=== PATIENT | female | born 1945 | race Hispanic/Latino ===

== ENCOUNTER 2017-10-09 12:29 | Outpatient (CLI) | payer MEDICARE ==
--- NOTE | 2017-10-09 16:58 | XRay Report ---
XRAY LEFT HIP THREE VIEWS: 10/09/17 12:29:00 CLINICAL: Left hip pain. FINDINGS: Severe osteoarthritis of the left hip with deformity of the femoral head and loss of the superior and central joint space. Geodes in the femoral head and large osteophytes. Acetabular eburnation. No fracture or dislocation. Status post right total hip replacement with normal appearance of the prosthesis. The pelvic bones are intact. Lower lumbar degenerative disc disease. Normal soft tissues. IMPRESSION: Severe osteoarthritis of the left hip. Status post right total hip replacement.
== END 2017-10-09 12:30 | disposition home or self-care (01) ==
LOC: SPVIMAG 12:29
PROVIDERS: ATTEND Orthopaedic Surgery Sports Medicine
DX: M16.12 Unilateral primary osteoarthritis, left hip (principal); Z96.641 Presence of right artificial hip joint; M51.36 Other intervertebral disc degeneration, lumbar region

== ENCOUNTER 2017-12-13 07:42 | Outpatient (CLI) | payer MEDICARE ==
--- NOTE | 2017-12-13 08:07 | XRay Report ---
LEFT HIP RADIOGRAPHS INDICATION: Status post total hip replacement. COMPARISON: 10/09/2017. FINDINGS: AP pelvic and left hip radiographs as also a left hip frog-leg projection demonstrate interval left hip arthroplasty without evidence of loosening. Stable right hip arthroplasty. Osteoporosis. Lower lumbar degenerative changes. Atherosclerotic aortoiliac calcifications. Nonobstructive bowel gas pattern. CONCLUSION: Interval left hip replacement in this patient with stable right hip arthroplasty and few other findings, as above. Thank you for the opportunity to participate in this patient's care.
== END 2017-12-13 07:43 | disposition home or self-care (01) ==
LOC: SPVIMAG 07:42
PROVIDERS: ATTEND Orthopaedic Surgery Sports Medicine
DX: Z47.1 Aftercare following joint replacement surgery (principal); M81.0 Age-related osteoporosis without current pathological fracture; M47.896 Other spondylosis, lumbar region; I70.0 Atherosclerosis of aorta; Z96.642 Presence of left artificial hip joint

== ENCOUNTER 2022-04-04 08:53 | Outpatient (CLI) | payer MEDICARE ==
[2022-04-04 10:15] LABS: Blood Urea Nitrogen 23 mg/dL (7-17)
--- NOTE | 2022-04-04 14:11 | Cat Scan Report ---
CTA ABDOMEN, PELVIS, AND LOWER EXTREMITIES WITH CONTRAST INDICATION / CLINICAL INFORMATION: I71.4. TECHNIQUE: Axial CT images were obtained through the abdomen, pelvis and lower extremities after inje ction of 100 cc of Omnipaque 350 IV contrast. 3 plane MIP / 3D reconstructions were produced. All CT scans at this location are performed using CT dose reduction for ALARA by means of automated exposure control. COMPARISON: None available. FINDINGS: CTA ABDOMEN: Abdominal Aorta: There is a 5.8 cm infrarenal abdominal aortic aneurysm. The aneurysm extends into th e common iliac arteries bilaterally. There is moderate atherosclerotic disease noted in the imaged po rtion of the thoracic aorta and in the abdominal aorta. Celiac Artery: There is mild disease at the origin without hemodynamically significant stenosis. Superior Mesenteric Artery: There is a moderate stenosis at the origin. Right Renal Artery: No significant abnormality. Left Renal Artery: No significant abnormality. Inferior Mesenteric Artery: Appears to fill from collaterals. The origin occluded. CTA PELVIS: RIGHT: - Common Iliac Artery: There is aneurysmal dilatation. The common iliac artery on the right measures 2.7 cm. There is moderate plaque. - Internal Iliac Artery: There is moderate to severe plaque without significant stenosis identified i n the proximal aspect. - External Iliac Artery: There is moderate plaque without discrete significant stenosis identified. LEFT: - Common Iliac Artery: There is aneurysmal dilatation. The vessel measures approximately 2.6 cm - Internal Iliac Artery: There is severe plaque. - External Iliac Artery: There is severe plaque. CTA LOWER EXTREMITIES: RIGHT LOWER EXTREMITY: - Common Femoral Artery: There is moderate plaque without significant stenosis. - Superficial Femoral Artery: There is multifocal plaque with focal stenosis of approximately 50% in the mid SFA, series 2 image 435. - Profunda Femoral Artery: No significant abnormality. - Popliteal Artery: There is moderate plaque without hemodynamically significant stenosis. - Anterior Tibial Artery: No significant abnormality. - Tibioperoneal Trunk: There is a stenosis appears to be greater than 50% diameter reduction - Posterior Tibial Artery: No significant abnormality - Peroneal Artery: No significant abnormality. - Ankle runoff: Three vessel. LEFT LOWER EXTREMITY: - Common Femoral Artery: There is moderate to severe plaque with approximately 50% diameter reduction stenosis. - Superficial Femoral Artery: There is multifocal disease with an approximate 60-70% diameter reducti on in the proximal third of the SFA, series 2 image 410. There is an approximate 50-60% diameter redu ction in the distal SFA. - Profunda Femoral Artery: No significant abnormality. - Popliteal Artery: There is moderate plaque. There is an approximate 50-60% diameter reduction steno sis in the mid - Anterior Tibial Artery: There is calcific plaque proximally. The vessel is patent to the ankle. - Tibioperoneal Trunk: There is a severe stenosis - Posterior Tibial Artery: Occluded - Peroneal Artery: Is patent to the ankle. - Ankle runoff: 2 vessel. NONTARGET STRUCTURES: ABDOMEN:There is severe emphysematous change noted in the imaged portion of the lungs greater on the right and the left. The liver, spleen, adrenal glands, and kidneys show no acute abnormality. There i s been prior cholecystectomy. There is dilatation of the biliary system with some intra and extrahepa tic biliary dilatation. There is a relatively large duodenal diverticulum arising near the ampulla. There is a fat-containing hernia near the umbilicus. PELVIS:There are bilateral hip arthroplasties which creates significant artifact. There is sigmoid di verticulosis. No acute abnormality. LOWER EXTREMITIES:No acute abnormality. SKELETAL: There is subjective osteopenia in the imaged skeleton. There are bilateral hip arthroplasti es. ADDITIONAL FINDINGS: None. IMPRESSION: 1. There is aneurysmal dilatation of the abdominal aorta measuring up to 5.8 cm in diameter. The aneu rysm extends into the common iliac arteries bilaterally. 2. There is extensive atherosclerotic disease described by vessel above. Signer Name: Vlad Krueger MD Signed: 04/04/2022 2:06 PM Workstation Name: [id number]
== END 2022-04-04 08:54 | disposition home or self-care (01) ==
LOC: CT 08:53
PROVIDERS: ATTEND Surgery Vascular Surgery
DX: I71.4 Abdominal aortic aneurysm, without rupture (principal); I70.0 Atherosclerosis of aorta; I70.203 Unspecified atherosclerosis of native arteries of extremities, bilateral legs; K42.9 Umbilical hernia without obstruction or gangrene; M85.88 Other specified disorders of bone density and structure, other site; J43.9 Emphysema, unspecified; Z90.49 Acquired absence of other specified parts of digestive tract
CPT/HCPCS: 36415; 75635; 82565; 84520; Q9967

== ENCOUNTER 2022-04-11 06:36 | Inpatient (IN) | payer MEDICARE ==
[2022-04-11 07:37] LABS: Basophils # (Auto) 0.1 K/mm3 (0.0-0.1); Basophils % (Auto) 0.6 % (0.0-1.8); Eosinophils # (Auto) 0.4 K/mm3 (0.0-0.4); Eosinophils % (Auto) 4.6 % (0.0-4.3); Hematocrit 33.7 % (30.3-42.9); Hemoglobin 10.6 gm/dl (10.1-14.3); Lymphocytes # (Auto) 1.1 K/mm3 (1.2-5.4); Lymphocytes % (Auto) 13.4 % (13.4-35.0); Mean Corpuscular HGB Conc 32 % (30-34); Mean Corpuscular Volume 83 fl (79-97); Monocytes # (Auto) 0.7 K/mm3 (0.0-0.8); Monocytes % (Auto) 8.8 % (0.0-7.3); Platelet Count 280 K/mm3 (140-440); Red Blood Count 4.05 M/mm3 (3.65-5.03); Red Cell Distribution Width 18.8 % (13.2-15.2)
[2022-04-11 07:46] LABS: INR 0.95 (0.87-1.13)
--- NOTE | 2022-04-11 07:46 | Anesthesia Consultation ---
Anesthesia Consult and Med Hx Date of service: 04/11/22 - Airway Anesthetic Teeth Evaluation: Dentures (upper and lower), Edentulous ROM Head & Neck: Adequate Mental/Hyoid Distance: Adequate Mallampati Class: Class II Intubation Access Assessment: Probably Good - Pre-Operative Health Status ASA Pre-Surgery Classification: ASA3 Proposed Anesthetic Plan: MAC - Pulmonary Hx Smoking: Yes (40 pack/years, quit 3 years ago) COPD: Yes (emphysema) Home Oxygen Therapy: Yes Hx Pneumonia: Yes (recent) - Cardiovascular System Hx Hypertension: Yes (no meds) Hx Peripheral Vascular Disease: Yes (AA with bilateral ileac aneurysms) - Gastrointestinal Hx Gastroesophageal Reflux Disease: Yes - Other Systems Hx Cancer: Yes (h/o breast CA)
[2022-04-11 07:47] LABS: Partial Thromboplastin Time 28.7 Sec. (24.2-36.6)
--- NOTE | 2022-04-11 07:48 | Anesthesia Day of Surgery ---
Anesthesia Day of Surgery - Day of Surgery Patient Examined: Yes Patient H&P Reviewed: Yes Patient is NPO: Yes
[2022-04-11 07:50] LABS: Calcium 10.2 mg/dL (8.4-10.2)
[2022-04-11] MEDS ORDERED: HEPARIN 10,000 UNITS/10 ML VIAL ONE (08:00)
[2022-04-11] MEDS ORDERED: HEPARIN/NS 5000 UNIT/500ML 1,500 ML IR ONE (08:00)
[2022-04-11] MEDS ORDERED: HYDROmorphone 1 MG/1 ML INJ ONE (08:01)
[2022-04-11] MEDS ORDERED: LIDOCAINE (2%) 20 MG/1 ML VIAL 50 ML MDV INFILTRATI ONE (08:01)
[2022-04-11] MEDS ORDERED: MIDAZOLAM 2 MG/2 ML INJ ONE (08:02)
[2022-04-11] MEDS: SODIUM CHLORIDE 0.9% 1000 ML 1,000 ML IV SCH ×3 (08:16→13:03)
[2022-04-11] MEDS ORDERED: PHENYLEPHRINE/NS 1,000 MCG/10 ML SYRINGE (OR USE) IV ONE (09:30)
[2022-04-11] MEDS ORDERED: dexAMETHasone 4 MG/ML VIAL IV SCH (09:30)
[2022-04-11] MEDS ORDERED: dexAMETHasone 20 MG/5 ML VIAL ONE (09:30)
[2022-04-11] MEDS ORDERED: HEPARIN/NS 5000 UNIT/500ML 1,000 ML IR ONE (09:32)
[2022-04-11] MEDS ORDERED: BUPIVACAINE/PF (0.5%) 5 MG/1 ML 10 ML VIAL INFILTRATI ONE (10:47)
[2022-04-11] MEDS ORDERED: ACETAMINOPHEN 325 MG TAB PO PRN (11:09)
[2022-04-11] MEDS ORDERED: traMADol 50 MG TAB PO PRN (11:18)
[2022-04-11] MEDS ORDERED: ONDANSETRON 4 MG/2 ML INJ IV PRN (11:23)
--- NOTE | 2022-04-11 13:05 | Operative Report ---
Operative Report Operative Report: Date of Procedure: 04/11/2022 Pre-operative Diagnosis: Infrarenal Abdominal Aortic Aneurysm with Bilateral Common Iliac Artery Aneurysms Post-operative Diagnosis: Same Procedure(s): 1. Ultrasound-Guided Access Right Common Femoral Artery 2. Ultrasound-Guided Access Left Common Femoral Artery 3. Catheter in Aorta 4. Diagnostic Aortogram (No Previous Films for Comparison) 5. Diagnostic Bilateral Iliofemoral Angiogram (No Previous Films for Comparison) 6. Angioplasty Left External Iliac Artery with 6 x 40 EverCross Balloon 7. Percutaneous Endovascular Repair Of Abdominal Aortic Aneurysm and Bilateral Common Iliac Artery Aneurysms with: 1. 29 mm Endologix [place] Aortic Body 2. 22 x 120 mm Endologix Ovation iX Contralateral Iliac Limb 3. 18 x 140 mm Endologix Ovation iX Ipsilateral Limb 8. Closure of Right Common Femoral Arteriotomy with Pre-Close Technique using 2 Perclose ProGlide Closure Devices 9. Closure of Left Common Femoral Arteriotomy with Pre-Close Technique using 2 Perclose ProStyle Closure Devices 10. Radiologic Supervision with Interpretation Surgeon: Jori Tripathi M.D. Utility Locator: None Anesthesia: MAC EBL: 150 mL Counts: Correct Complications: None Condition: Stable Specimen: None Indication: The patient is a 76-year-old female with a history of COPD and an abdominal aortic aneurysm measuring 5.7 cm. She also has aneurysmal dilatation of bilateral common iliac arteries. She underwent clearance from her gas fitter apprentice as well as cardiac clearance was found to be a suitable candidate for endovascular repair of her abdominal aortic aneurysm. She was offered a PEVAR and she was given the risk, benefits, and alternative procedures and expressed understanding and agreed to proceed. Angiographic Findings: The diagnostic aortogram revealed an infrarenal abdominal aortic aneurysm without any evidence of rupture. Bilateral common iliac arteries demonstrated aneurysmal dilatation. Her bilateral external iliac arteries were heavily calcified with severe stenosis of the left proximal external iliac artery. Bilateral hypogastric arteries were heavily calcified but patent. At the completion of the case the endograft was in place with an adequate seal in the proximal zone. There appeared to be a type Ib endoleak involving the left common iliac artery however this was likely due to near total occlusion of the outflow secondary to the the sheath placement. Upon pulling the sheath back this improved however there was a persistent endoleak. There was an adequate seal of the right common iliac artery without any evidence of endoleak. There was no evidence of type II endoleak. It was felt that removal of the sheath would eliminate the endoleak so the case was ended without further intervention. Description of Procedure: The patient was brought to the Hopper Operator and laid in supine position. After a timeout was performed the patient was adequately sedated and prepped and draped in normal sterile fashion. Ultrasound was used to identify the right common femoral artery and confirm patency. Once patency was confirmed overlying skin and soft tissue was anesthetized with lidocaine and an 11 blade was used to make a small stab incision. A curved hemostat was used with ultrasound guidance to bluntly dissect down to the anterior surface of the right common femoral artery. A 21-gauge micropuncture needle was used with ultrasound guidance to access the right common femoral artery a 0.018 micropuncture wire was advanced to the a rtery. The needle was removed and a micropuncture sheath was placed by Seldinger technique. The 0.035 Bentson wire was advanced into the aorta and after removing the sheath a 6 [place] sheath was placed by Seldinger technique. The sheath was used to dilate the tract and then a Pre-Close Technique was performed using 2 Perclose ProGlide Closure Devices. The first closure device was placed at the 2 o'clock position, of the common femoral artery, with a second ProGlide being placed at the 10 o'clock position. A 10 [place] sheath was then placed by Seldinger technique. I then used ultrasound to identify the left common femoral artery and confirm patency. Once patency was confirmed the overlying skin and soft tissue was anesthetized lidocaine. An 11 blade was used to make a small stab incision and a curved hemostat was used ultrasound guidance to bluntly dissect down to the anterior surface of the left common femoral artery. A 21-gauge micropuncture needle was used with ultrasound guidance access to the left common femoral artery and a 0.018 micropuncture wire was advanced into the artery. The needle was exchanged for micropuncture sheath by Seldinger technique. The dilator and wire were removed and a 0.035 Bentson wire was advanced into the aorta. A 6 [place] sheath was then placed by Seldinger technique and used to dilate the tract. A Pre-Close technique was then used us ing 2 Perclose ProStyle Closure Devices with the first being placed at the 10 o'clock position in the left common femoral artery and the second being placed at the 2 o'clock position. A 10 [place] sheath was then placed by Seldinger technique. At this point I systemically heparinized the patient with 4000 units of heparin IV and this was redosed with 1000 units after 45 minutes. I then used a vertebral catheter to advance the left common femoral Bentson wire into the suprarenal aorta and then exchanged the wire for a 0.035 Lunderquist wire. I advanced a marker pigtail catheter up the right side and placed it at the level of the renal arteries. I attempted to advance the main body up the left side however i could not advance the graft through the left external iliac artery..I removed the device and performed angioplasty of the left external iliac artery with a 6 x 40 EverCross Balloon. The follow up angiogram appeared to have less than 30% residual stenosis however I was still unable to advance the main body through the left external iliac artery so I decide to attempt the right side. I advance the marker pigtail catheter up the left side and advanced a 0.035 Lunderquist up the right side. I was able to advance the 29 mm LILLIAN aortic body delivery system into position, approximately 1 cm above the renal arteries. I performed a diagnostic aortogram to identify the renal arteries and positioned the graft. The delivery system outer sheath was then retracted while holding the graft in place. The mid crown release knob was then turned and removed deploying the mid crown. A 4:1 saline to contrast mixture was then connected to the balloon port and the balloon was inflated deploying the main graft. The balloon was deflated and an angiogram was performed to demonstrate the level of the renal arteries. The graft was then pulled down into position by placing the radiopaque markers in the middle of the renal artery. The pigtail catheter was then pulled down into the distal aorta and the proximal crown deployment knob was then pulled fully deploying the graft in position. The polymer was then mixed on the back table with a minimum of 20 full syringe strokes. There was syringe was then filled to the minimum fill syringe volume for the 29 mm graft. The polymer syringe was then connected to the polymer port and the autoinjector was connected to the polymer syringe and the polymer began filling the graft. A timer was then set for 14 minutes. The Lunderquist wire was then pulled back into the distal graft. The polypoid began to fill the graft however the contralateral limb appeared to be slightly kinked which limited the filling. Given the position of the contralateral limb I was unable to cannulate the limb so I advanced a 0.018 V18 wire through the up and over port and advanced this through the contralateral limb. Prior to cannulating the contralateral limb the 14-minute timer went off and I used the balloon port to inflate and shaped the rings. I then advanced a 7 Nauruan 45 cm destination sheath into the left femoral sheath followed by a 7 [place]auruan EnSnare and was able to snare the wire. Once the wire was pulled out through the left femoral sheath I was able to advance the destination sheath into the contralateral limb. I then remove the V 18 wire and advanced a 0.035 Amplatz wire through the destination sheath and into the proximal aorta. I removed the destination sheath as well as the 10 [place] sheath and then advanced the marker pigtail catheter into the proximal aortic graft. An angiogram was then performed was then performed to determine the required length of the iliac extension. A 22 x 120 Endologix Ovation iX Contralateral Iliac Limb was chosen and deployed extending into the distal left common iliac artery. I pulled the nose come back into the sheath and then advance it into the limb. I then removed the inner sheath leaving the outer sheath in place. I then advanced the pigtail catheter through the right femoral artery and positioned it to perform an angiogram. Once the angiogram was performed and the adequate length of the ipsilateral limb was confirmed a 18 x 140 mm Endologix Ovation iX Ipsilateral Limb was advanced into position and deployed. I retracted the nose cone into the distal sheath and then advanced it into the limb. I then remove the inner sheath leaving the outer sheath in place. 12 x 40 EverCross balloons were then used to postdilate the limbs and ensure adequate apposition and decrease the risk of endoleak. The pigtail catheter was readvanced into the aorta and a final angiogram was performed that demonstrated no evidence of a type Ia leak. There was a 1B leak in the right common iliac artery however this appeared to be secondary to the sheath within the left external iliac artery being near totally occlusive and causing retrograde flow with the pressurized vessel around the stent grafts. There was no evidence of a type II leak. At this point each wire was exchanged for Bentson wires and then each respective sheath was removed and the previously placed ProGlides were used to close the right femoral arteriotomy and the previously placed ProStyles were used to close the left femoral arteriotomy. The small incisions were then anesthetized with 0.5% Marcaine and closed in a single layer using 4-0 Monocryl interrupted fashion. Dermabond was then applied to the incisions. The patient tolerated the procedure well. All sponge, needle, and instrument counts were correct. The patient was transported to the recovery area in stable condition.
[2022-04-11] MEDS ORDERED: NON-FORMULARY EACH (Brimonidine Tartrate [Alphagan P 0.1%] 10 ML Drops) OU SCH (14:00)
--- NOTE | 2022-04-11 16:01 | Post Anesthesia Evaluation ---
- Post Anesthesia Evaluation Patient Participated: Yes Airway Patent: Yes Stable Respiratory Function: Yes Nausea/Vomiting: No Temp > 96.8F: Yes Pain Manageable: Yes Adequeate Hydration: Yes Anesthesia Complications: No Block Receding Appropriately: Not Applicable Patient on Ventilator: No
[2022-04-11] MEDS: ceFAZolin/NS 1 GM/50 ML 1 GM/50 ML BAG IV SCH (16:32)
[2022-04-11] MEDS ORDERED: SODIUM CHLORIDE 0.9% 1000 ML 500 ML IV ONE (18:55)
[2022-04-11] MEDS: BUDESONIDE 0.5 MG/2 ML NEBU IH SCH (20:50)
[2022-04-11] MEDS: ARFORMOTEROL 15 MCG/2 ML NEBU IH SCH (20:51)
[2022-04-12] MEDS: ceFAZolin/NS 1 GM/50 ML 1 GM/50 ML BAG IV SCH (00:18)
[2022-04-12] MEDS: SODIUM CHLORIDE 0.9% 1000 ML 1,000 ML IV SCH (04:48)
[2022-04-12 05:38] LABS: Hematocrit 29.1 % (30.3-42.9)
[2022-04-12 05:57] LABS: Blood Urea Nitrogen 16 mg/dL (7-17); Calcium 8.3 mg/dL (8.4-10.2); Hemolysis Index 0
[2022-04-12 05:59] LABS: BUN/Creatinine Ratio 23
[2022-04-12] MEDS ORDERED: TIOTROPIUM 18 MCG CAP INHALATION IH SCH (09:00)
[2022-04-12] MEDS: BUDESONIDE 0.5 MG/2 ML NEBU IH SCH (09:39)
[2022-04-12] MEDS: ARFORMOTEROL 15 MCG/2 ML NEBU IH SCH (09:40)
[2022-04-12] MEDS ORDERED: LATANOPROST 0.005% OPHTH SOLN 2.5 ML OU SCH (10:00)
[2022-04-12] MEDS ORDERED: GABAPENTIN 300 MG CAP PO SCH (10:00)
[2022-04-12] MEDS ORDERED: NON-FORMULARY EACH (Anastrozole [Arimidex] 1 MG Tablet) PO SCH (10:00)
[2022-04-12] MEDS ORDERED: PANTOPRAZOLE 40 MG TAB PO SCH (10:00)
[2022-04-12] MEDS ORDERED: CLOPIDOGREL 75 MG TAB PO SCH (10:00)
[2022-04-12] MEDS ORDERED: CALCIUM CARB/VIT D3/MINERALS 600 MG/800 UNITS TAB PO SCH (10:00)
[2022-04-12] MEDS ORDERED: NON-FORMULARY EACH (Fluticasone/Umeclidin/Vilanter 1 EACH Blst.W.Dev) INHALATION SCH (10:00)
--- NOTE | 2022-04-12 10:49 | Short Stay Summary ---
Short Stay Documentation Date of service: 04/12/22 Narrative H&P: See H&P - Allergies and Medications Current Medications: Allergies codeine Allergy (Verified 04/11/22 06:57) Shortness of Breath Home Medications Medication Instructions Recorded Confirmed Last Taken Type Anastrozole [Arimidex] 1 mg PO DAILY 04/11/22 04/11/22 04/10/22 History 1 tab Aspirin EC [Halfprin EC] 81 mg PO DAILY 04/11/22 04/11/22 04/08/22 History 1 tab Brimonidine Tartrate [Alphagan P 1 drop OU Q8HR 04/11/22 04/11/22 04/10/22 History 0.1%] 1 drop Calcium Carbonate/Vitamin D3 1 each PO DAILY 04/11/22 04/11/22 04/10/22 History [Calcium 600-Vit D3 200 Tablet] 1 tab Fluticasone/Umeclidin/Vilanter 1 puff INHALATION DAILY 04/11/22 04/11/22 04/10/22 History [Trelegy Ellipta 100-62.5-25(Nf)] 1 puff Gabapentin 300 mg PO DAILY 04/11/22 04/11/22 04/10/22 History 1 tab Latanoprost 0.005% 0.5 mg OU DAILY 04/11/22 04/11/22 04/10/22 History 1 drop Pantoprazole [Protonix] 40 mg PO QDAY 04/11/22 04/11/22 04/10/22 History 1 tab Active Medications Acetaminophen (Acetaminophen 325 Mg Tab) 650 mg PO Q4H PRN PRN Reason: Pain MILD(1-3)/Fever >100.5/RICHTER Arformoterol Tartrate (Arformoterol 15 Mcg/2 Ml Nebu) 15 mcg IH Q12HRT JESSICA Last Admin: 04/12/22 09:40 Dose: 15 mcg Budesonide (Budesonide 0.5 Mg/2 Ml Nebu) 0.5 mg IH Q12HRT JESSICA Last Admin: 04/12/22 09:39 Dose: 0.5 mg Clopidogrel Bisulfate (Clopidogrel 75 Mg Tab) 75 mg PO QDAY JESSICA Gabapentin (Gabapentin 300 Mg Cap) 300 mg PO DAILY JESSICA Sodium Chloride (Nacl 0.9% 1000 Ml) 1,000 mls @ 75 mls/hr IV DIRECT JESSICA Last Admin: 04/12/22 04:48 Dose: 75 mls/hr Latanoprost (Latanoprost 0.005% Ophth Soln 2.5 Ml) 1 drops OU DAILY [facility] Miscellaneous Medication (Anastrozole [Arimidex]) 1 mg PO DAILY [facility] Miscellaneous Medication (Brimonidine Tartrate [Alphagan P 0.1%]) 1 drop OU Q8HR [facility] Multivitamins/Minerals (Calcium Carb/Vit D3/Minerals 600 Mg/800 Units Tab) 1 each PO DAILY [facility] Ondansetron HCl (Ondansetron 4 Mg/2 Ml Inj) 4 mg IV Q8H PRN PRN Reason: Nausea And Vomiting Pantoprazole Sodium (Pantoprazole 40 Mg Tab) 40 mg PO QDAY [facility] Tiotropium Calvin (Tiotropium 18 Mcg Cap Inhalation) 1 puff IH Q24HRT [facility] Last Admin: 04/12/22 09:40 Dose: 1 puff Tramadol HCl (Tramadol 50 Mg Tab) 50 mg PO Q4H PRN PRN Reason: Pain, Moderate (4-6) - Physical exam General appearance: no acute distress Lungs: Normal air movement Heart: Regular rate Gastrointestinal: normal, other (soft, mild midepigastric tenderness, aorta slightly pulsatile) Female Genitourinary: deferred Rectal Exam: deferred Extremities: no ischemia, pulses intact (Palpable DP bilaterally) - Brief post op/procedure progress note Date of procedure: 04/11/22 Pre-op diagnosis: Abdominal Aortic Aneurysm Post-op diagnosis: same Procedure: 1. Ultrasound-Guided Access Right Common Femoral Artery 2. Ultrasound-Guided Access Left Common Femoral Artery 3. Catheter in Aorta 4. Diagnostic Aortogram (No Previous Films for Comparison) 5. Diagnostic Bilateral Iliofemoral Angiogram (No Previous Films for Comparison) 6. Angioplasty Left External Iliac Artery with 6 x 40 EverCross Balloon 7. Percutaneous Endovascular Repair Of Abdominal Aortic Aneurysm and Bilateral Common Iliac Artery Aneurysms with: 1. 29 mm Endologix [place] Aortic Body 2. 22 x 120 mm Endologix Ovation iX Contralateral Iliac Limb 3. 18 x 140 mm Endologix Ovation iX Ipsilateral Limb 8. Closure of Right Common Femoral Arteriotomy with Pre-Close Technique using 2 Perclose ProGlide Closure Devices 9. Closure of Left Common Femoral Arteriotomy with Pre-Close Technique using 2 Perclose ProStyle Closure Devices 10. Radiologic Supervision with Interpretation Anesthesia: MAC Surgeon: TENA GILLESPIE Estimated blood loss: other (150 ml) Pathology: none Condition: stable - Hospital course Hospital course: The patient was brought to the hospital and underwent an uneventful EVAR in the cathlab. She was admitted to the [facility] where she had no significant events overnight. On POD #1 she continues to do well and is clinically ready for discharge home. - Disposition Condition at discharge: Good Disposition: 01 HOME / SELF CARE / HOMELESS Short Stay Discharge Plan Activity: no restrictions Diet: regular Wound: open to air, keep clean and dry, other (Okay to shower and wash the incisions with soap and water but do not soak in water for 2 weeks.) Special Instructions: other (Discharge instruction explained to the patient and [id number] who expressed understanding) Follow up with: TENA GILLESPIE MD [Staff Physician] - 05/04/22 Prescriptions: Clopidogrel [Plavix] 75 mg PO QDAY #90 tablet traMADoL [Ultram 50 MG tab] 50 mg PO Q4H PRN #30 tablet PRN Reason: Pain, Moderate (4-6)
--- NOTE | 2022-04-12 11:04 | Electrocardiograph Report ---
[facility], [place] Test Date: 2022-04-11 Test Time: 07:36:06 Pat Name: GARTH NUNEZ Department: Room: A264 Gender: F [employer]olesale [employer] Salesperson: CONNIE : [id number] Requested By: TENA GILLESPIE Order Number: [id number] Reading MD: Javier Pepper Measurements Intervals [place] Rate: 61 P: 75 LA: 155 QRS: 59 QRSD: 88 T: 63 QT: 434 QTc: 437 Interpretive Statements Sinus rhythm No previous ECG available for comparison Electronically Signed On 04-12-2022 11:03:35 EDT by Javier Pepper
[2022-04-12 11:55] VITALS: BP 136/76
== END 2022-04-12 12:12 | disposition home or self-care (01) | DRG 269 ==
LOC: CATHLABREC 06:36 → IMCU 11:24
PROVIDERS: ADMIT Surgery Vascular Surgery; ATTEND Surgery Vascular Surgery
PROC: 04VC3DZ Restriction of Right Common Iliac Artery with Intraluminal Device, Percutaneous Approach (ICD-10-PCS; principal; 2022-04-11)
PROC: 04VD3DZ Restriction of Left Common Iliac Artery with Intraluminal Device, Percutaneous Approach (ICD-10-PCS; 2022-04-11)
PROC: 04V03DZ Restriction of Abdominal Aorta with Intraluminal Device, Percutaneous Approach (ICD-10-PCS; 2022-04-11)
PROC: 047J3ZZ Dilation of Left External Iliac Artery, Percutaneous Approach (ICD-10-PCS; 2022-04-11)
PROC: B4101ZZ Fluoroscopy of Abdominal Aorta using Low Osmolar Contrast (ICD-10-PCS; 2022-04-11)
PROC: B44HZZ3 Ultrasonography of Bilateral Lower Extremity Arteries, Intravascular (ICD-10-PCS; 2022-04-11)
DX: I71.4 Abdominal aortic aneurysm, without rupture (principal); I72.3 Aneurysm of iliac artery; I10 Essential (primary) hypertension; K21.9 Gastro-esophageal reflux disease without esophagitis; I73.9 Peripheral vascular disease, unspecified; Z85.3 Personal history of malignant neoplasm of breast; J43.9 Emphysema, unspecified; Z88.6 Allergy status to analgesic agent; Z87.891 Personal history of nicotine dependence; Z79.82 Long term (current) use of aspirin
CPT/HCPCS: 34705; 34713; 36415; 80048; 85014; 85018; 85025; 85610; 85730; 86850; 86900; 86901; 93005; 94640; 94760; G0378; J3490; C1725; C1751; C1760; C1769; C1874; C1887; C1894; J0690; J1100; J1170; J1644; J2250; J2370; J2704; J7030; Q9967

== ENCOUNTER 2022-05-04 10:35 | Inpatient (IN) | payer MEDICARE ==
--- NOTE | 2022-05-04 11:26 | XRay Report ---
CHEST 1 VIEW INDICATION / CLINICAL INFORMATION: Chest Pain STUDY TIME: 1107 COMPARISON: None available. FINDINGS: SUPPORT DEVICES: None HEART / MEDIASTINUM: No significant abnormality. LUNGS / PLEURA: Focal density is seen in the right apex which appears likely to represent chronic sca rring though I do not have comparison studies available for confirmation of stability. There is volum e loss in the right upper lobe is well. Focal somewhat linear density is seen in the left upper lobe extending from the left hilum of unknown chronicity though possibly also representing scarring. This has a somewhat nodular appearance. In the medial aspect of the right base possible nodularity is seen measuring up to 15 mm. Questionably there is a left pleural effusion versus minimal scarring. No pne umothorax. ADDITIONAL FINDINGS: Aortic endograft is seen in the diaphragmatic hiatus region. IMPRESSION: Bilateral abnormalities are seen of unknown chronicity. I do not strongly suspect acute p neumonitis though that is not totally excluded. Much of the findings probably are chronic but I would recommend follow-up and clinical correlation. Signer Name: Anthony Paul MD Signed: 05/04/2022 11:22 AM Workstation Name: [id number]
[2022-05-04] MEDS ORDERED: LACTATED RINGERS 500 ML IV ONE (11:38)
[2022-05-04] MEDS ORDERED: ACETAMINOPHEN 325 MG/10.15 ML ORAL LIQD UNIT DOSE PO ONE (11:41)
--- NOTE | 2022-05-04 11:41 | Emergency Department Report ---
ED General Adult HPI - General Chief complaint: Chest Pain Stated complaint: CHEST PAIN Time Seen by Provider: 05/04/22 11:24 Source: patient, RN notes reviewed, old records reviewed Mode of arrival: Wheelchair Limitations: Physical Limitation - History of Present Illness Initial comments: The patient was evaluated in the emergency department for symptoms described in the history of present illness. He/she was evaluated in the context of the global COVID-19 pandemic, which necessitated consideration that the patient might be at risk for infection with the virus that causes COVID-19. Institutional protocols and algorithms that pertain to the evaluation of patients at risk for COVID-19 are in a state of rapid change based on information released by regulatory bodies including the CDC and federal and state organizations. These policies and algorithms were followed during the patient's care in the emergency department. Please note that these policies, procedures and recommendations changed on a rapid basis. Cardiology: [facility] cardiology Pulmonology: Dr. Talbot Patient is a 76-year-old female with a history of COPD emphysema, hypertension, diabetes, anemia and chronic respiratory failure. She also has a history of AAA, status post recent repair by [facility] vascular [place]. The patient presents to the department today with a complaint of right-sided chest wall pain, and shortness of breath. No vomiting. No diaphoresis. Positive chronic shortness of breath. No loss of taste or smell. No abdominal pain. Positive black stool. Patient is taking aspirin and Plavix as prescribed. No recent cardiac restratif ication that she is aware of. The chest wall pain is right-sided, and started yesterday. It has essentially been constant since yesterday. -: hour(s) Location: chest Quality: aching Consistency: constant Improves with: none Worsens with: other (Movement, palpation, eating and swallowing.) - Related Data Home Medications Medication Instructions Recorded Confirmed Last Taken Anastrozole [Arimidex] 1 mg PO DAILY 04/11/22 04/11/22 04/10/22 1 tab Brimonidine Tartrate [Alphagan P 1 drop OU Q8HR 04/11/22 04/11/22 04/10/22 0.1%] 1 drop Calcium Carbonate/Vitamin D3 1 each PO DAILY 04/11/22 04/11/22 04/10/22 [Calcium 600-Vit D3 200 Tablet] 1 tab Fluticasone/Umeclidin/Vilanter 1 puff INHALATION DAILY 04/11/22 04/11/22 04/10/22 [Trelegy Ellipta 100-62.5-25(Nf)] 1 puff Gabapentin 300 mg PO DAILY 04/11/22 04/11/22 04/10/22 1 tab Latanoprost 0.005% 0.5 mg OU DAILY 04/11/22 04/11/22 04/10/22 1 drop Pantoprazole [Protonix TAB] 40 mg PO QDAY 04/11/22 04/11/22 04/10/22 1 tab Previous Rx's Medication Instructions Recorded Last Taken Type Clopidogrel [Plavix] 75 mg PO QDAY #90 tablet 04/12/22 Unknown Rx traMADoL [Ultram 50 MG tab] 50 mg PO Q4H PRN #30 tablet 04/12/22 Unknown Rx Allergies Allergy/AdvReac Type Severity Reaction Status Date / Time codeine Allergy Shortness Verified 05/04/22 10:42 of Breath ED Review of Systems ROS: Stated complaint: CHEST PAIN Other details as noted in HPI Constitutional: malaise. denies: fever Eyes: denies: eye discharge ENT: congestion Respiratory: shortness of breath. denies: cough Cardiovascular: chest pain Gastrointestinal: other (Black stool). denies: abdominal pain, hematemesis, hematochezia Musculoskeletal: myalgia Neurological: weakness Hematological/Lymphatic: denies: easy bleeding ED Past Medical Hx - Past Medical History Hx Hypertension: Yes (no meds) Hx GERD: Yes Hx COPD: Yes (emphysema) - Social History Smoking Status: Former Smoker - Medications Home Medications: Home Medications Medication Instructions Recorded Confirmed Last Taken Type Anastrozole [Arimidex] 1 mg PO DAILY 04/11/22 04/11/22 04/10/22 History 1 tab Brimonidine Tartrate [Alphagan P 1 drop OU Q8HR 04/11/22 04/11/22 04/10/22 History 0.1%] 1 drop Calcium Carbonate/Vitamin D3 1 each PO DAILY 04/11/22 04/11/22 04/10/22 History [Calcium 600-Vit D3 200 Tablet] 1 tab Fluticasone/Umeclidin/Vilanter 1 puff INHALATION DAILY 04/11/22 04/11/22 04/10/22 History [Trelegy Ellipta 100-62.5-25(Nf)] 1 puff Gabapentin 300 mg PO DAILY 04/11/22 04/11/22 04/10/22 History 1 tab Latanoprost 0.005% 0.5 mg OU DAILY 04/11/22 04/11/22 04/10/22 History 1 drop Pantoprazole [Protonix TAB] 40 mg PO QDAY 04/11/22 04/11/22 04/10/22 History 1 tab Clopidogrel [Plavix] 75 mg PO QDAY #90 tablet 04/12/22 Unknown Rx traMADoL [Ultram 50 MG tab] 50 mg PO Q4H PRN #30 tablet 04/12/22 Unknown Rx ED Physical Exam - General Limitations: Physical Limitation General appearance: alert, anxious - Head Head exam: Present: atraumatic, normocephalic - Eye Eye exam: Present: normal appearance, EOMI. Absent: nystagmus - ENT ENT exam: Present: normal exam, normal orophraynx, mucous membranes moist, normal external ear exam - Neck Neck exam: Present: normal inspection, full ROM. Absent: tenderness, meningismus - Respiratory Respiratory exam: Present: chest wall tenderness, decreased breath sounds. Absent: respiratory distress - Cardiovascular Cardiovascular Exam: Present: regular rate, normal rhythm, normal heart sounds. Absent: bradycardia, tachycardia, irregular rhythm, systolic murmur, diastolic murmur, rubs, gallop - GI/Abdominal GI/Abdominal exam: Present: soft. Absent: distended, tenderness, guarding, rebound, rigid, pulsatile mass - Rectal Rectal exam: Present: normal inspection, normal rectal tone, heme (-) stool, other (Patient provides consent for digital rectal examination. No gross blood.). Absent: heme (+) stool, black stool, bloody stool - Extremities Exam Extremities exam: Present: normal inspection, full ROM, other (2+ pulses noted in the bilateral upper and lower extremities. There is no palpable cord. negative Homans sign. Muscular compartments are soft. The pelvis is stable.). Absent: pedal edema, calf tenderness - Back Exam Back exam: Present: normal inspection. Absent: tenderness, CVA tenderness (R), CVA tenderness (L), paraspinal tenderness, vertebral tenderness - Neurological Exam Neurological exam: Present: alert, oriented X3, other (There is no facial droop. The tongue is midline. EOMI. 5 out of 5 strength in 4 extremities. Sensation is intact to light touch in 4 extremities.) - Psychiatric Psychiatric exam: Present: anxious - Skin Skin exam: Present: warm, dry, intact, normal color. Absent: rash ED Course Vital Signs 05/04/22 05/04/22 10:38 14:02 Temperature 98.3 F 98.0 F Pulse Rate 102 H 87 Respiratory 20 17 Rate Blood Pressure 106/67 [Left] Blood Pressure 98/50 [Right] O2 Sat by Pulse 98 100 Oximetry - Reevaluation(s) Reevaluation #1: 05/04/22 13:57 Differential diagnosis, include not limited to: GERD, gastritis, hiatal hernia, costochondritis, pulmonary embolism, acute coronary syndrome Assessment and plan: 76-year-old female, with multiple vascular risk factors, presenting with right-sided chest wall pain, chest pain, and acute shortness of breath. She is anemic, reports black stool, however, rectal exam is guaiac negative. Troponin negative x1, acute NE is ruled out. Patient moderate to high risk for major adverse cardiac event as per heart score. Contacted cardiology on-call, Dr. Schroeder. Discussed the patient's history, physical, EKG, and clinical impression. His group[facility] will follow in consultation. X-ray of the chest nonspecific. CT angiogram chest will be obtained, results are pending. Plan to admit patient to the medical service for acute chest pain once initial diagnostics have resulted. Have discussed this plan of care with patient and family members with patient's consent. They are in agreement and understand the plan of care 05/04/22 14:[address] scan chest shows chronic changes, emphysema, but no acute or emergent findings. Blood pressure is improved, and patient feels impro karlene. Family reports that patient has chronic anemia, although they are not able to tell me what her baseline is. I suspect that the patient is experiencing costochondritis, with superimposed reflux/gastritis/GI issues. Nevertheless, given advanced age, multiple medical comorbidities, heart score, recommend admission to the medical service for optimization, cardiology consultation, and a cardiac risk stratification. No evidence of active bleeding at this time. Patient and family are agreeable to packed red blood cell transfusion, if necessary. Hemoglobin greater than 8, does not have a known demonstrated history of CAD with stents, we will therefore hold off on packed red blood cell transfusion at this time. Hospital physician, Dr. Peralta, to admit patient to the medical service. ED Medical Decision Making - Lab Data Result diagrams: 05/04/22 11:25 05/04/22 11:25 Vital Signs 05/04/22 10:38 Temperature 98.3 F Pulse Rate 102 H Respiratory 20 Rate Blood Pressure 98/50 [Right] O2 Sat by Pulse 98 Oximetry Lab Results 05/04/22 05/04/22 Range/Units 11:25 11:25 WBC 13.6 H (4.5-11.0) K/mm3 RBC 3.40 L (3.65-5.03) M/mm3 Hgb 8.5 L (10.1-14.3) gm/dl Hct 27.7 L (30.3-42.9) % MCV 81 (79-97) fl MCH 25 L (28-32) pg MCHC 31 (30-34) % RDW 17.8 H (13.2-15.2) % Plt Count 439 (140-440) K/mm3 Lymph % (Auto) 5.1 L (13.4-35.0) % [place] % (Auto) 10.5 H (0.0-7.3) % Eos % (Auto) 0.1 (0.0-4.3) % Baso % (Auto) 0.2 (0.0-1.8) % Lymph # (Auto) 0.7 L (1.2-5.4) K/mm3 [place] # (Auto) 1.4 H (0.0-0.8) K/mm3 Eos # (Auto) 0.0 (0.0-0.4) K/mm3 Baso # (Auto) 0.0 (0.0-0.1) K/mm3 Seg Neutrophils % 84.1 H (40.0-70.0) % Seg Neutrophils # 11.5 H (1.8-7.7) K/mm3 Sodium 136 L (137-145) mmol/L Potassium 4.2 (3.6-5.0) mmol/L Chloride 96.2 L (98-107) mmol/L Carbon Dioxide 24 (22-30) mmol/L Anion Gap 20 mmol/L BUN 18 H (7-17) mg/dL Creatinine 0.8 (0.6-1.2) mg/dL Estimated GFR > 60 ml/min BUN/Creatinine Ratio 23 % Glucose 105 H (65-100) mg/dL Calcium 9.1 (8.4-10.2) mg/dL Total Bilirubin 0.50 (0.1-1.2) mg/dL AST 14 (5-40) units/L ALT 9 (7-56) units/L Alkaline Phosphatase 69 (35-129) units/L Troponin T < 0.010 (0.00-0.029) ng/mL Total Protein 6.4 (6.3-8.2) g/dL Albumin 4.0 (3.9-5) g/dL Albumin/Globulin Ratio 1.7 % - EKG Data -: EKG Interpreted by Me EKG shows normal: sinus rhythm Rate: normal - EKG Data 05/04/22 13:54 The EKG is interpreted at 11: 11 AM This is a sinus rhythm, with a rate of 94 bpm. Normal axis, normal P wave axis, left ventricular hypertrophy, and motion artifact. This is not consistent with an acute NE. There is repolarization. The EKG is also transmitted to interventional cardiology, Dr. Schroeder, who agrees that the EKG does not meet criteria for STEMI - Radiology Data Radiology results: pending, report reviewed, image reviewed CHEST 1 VIEW INDICATION / CLINICAL INFORMATION: Chest Pain STUDY TIME: 1107 COMPARISON: None available. FINDINGS: SUPPORT DEVICES: None HEART / MEDIASTINUM: No significant abnormality. LUNGS / PLEURA: Focal density is seen in the right apex which appears likely to represent chronic scarring though I do not have comparison studies available for confirmation of stability. There is volume loss in the right upper lobe is well. Focal somewhat linear density is seen in the left upper lobe extending from the left hilum of unknown chronicity though possibly also representing scarring. This has a somewhat nodular appearance. In the medial aspect of the right base possible nodularity is seen measuring up to 15 mm. Questionably there is a left pleural effusion versus minimal scarring. No pneumothorax. ADDITIONAL FINDINGS: Aortic endograft is seen in the diaphragmatic hiatus region. IMPRESSION: Bilateral abnormalities are seen of unknown chronicity. I do not strongly suspect acute pneumonitis though that is not totally excluded. Much of the findings probably are chronic but I would recommend follow-up and clinical correlation. Signer Name: Anthony Paul MD Signed: 05/04/2022 10:22 AM Workst ation Name: [id number] CHEST 1 VIEW INDICATION / CLINICAL INFORMATION: Chest Pain STUDY TIME: 1107 COMPARISON: None available. FINDINGS: SUPPORT DEVICES: None HEART / MEDIASTINUM: No significant abnormality. LUNGS / PLEURA: Focal density is seen in the right apex which appears likely to represent chronic scarring though I do not have comparison studies available for confirmation of stability. There is volume loss in the right upper lobe is well. Focal somewhat linear density is seen in the left upper lobe extending from the left hilum of unknown chronicity though possibly also representing scarring. This has a somewhat nodular appearance. In the medial aspect of the right base possible nodularity is seen measuring up to 15 mm. Questionably there is a left pleural effusion versus minimal scarring. No pneumothorax. ADDITIONAL FINDINGS: Aortic endograft is seen in the diaphragmatic hiatus region. IMPRESSION: Bilateral abnormalities are seen of unknown chronicity. I do not strongly suspect acute pneumonitis though that is not totally excluded. Much of the findings probably are chronic but I would recommend follow-up and clinical correlation. Signer Name: Anthony Paul MD Signed: 05/04/2022 10:22 AM Workstation Name: [id number] Critical care attestation.: If time is entered above; I have spent that time in minutes in the direct care of this critically ill patient, excluding procedure time. ED Disposition Clinical Impression: Acute chest pain, Chronic respiratory failure, Normocytic anemia Disposition: 09 ADMITTED INPATIENT Is pt being admited?: Yes Condition: Good Instructions: Chest Pain (ED) Referrals: PRIMARY CARE, [Primary Care Provider] - 3-5 Days Heart Score - HEART Score History: Moderately suspicious EKG: Non-specific Age: > 65 Risk factors: > 3 risk factors or hx of atherosclerotic disease Troponin: < normal limit HEART Score: 6 - EKG Read Time Time EKG Completed: 11:00 EKG Read Time: 11:00 - Critical Actions Critical Actions: 4-6 pts:12-16.6% risk of adverse cardiac event. Should be admitted
[2022-05-04 12:10] LABS: Basophils % (Auto) 0.2 % (0.0-1.8); Eosinophils % (Auto) 0.1 % (0.0-4.3); Hematocrit 27.7 % (30.3-42.9); Hemoglobin 8.5 gm/dl (10.1-14.3); Lymphocytes # (Auto) 0.7 K/mm3 (1.2-5.4); Lymphocytes % (Auto) 5.1 % (13.4-35.0); Mean Corpuscular HGB Conc 31 % (30-34); Mean Corpuscular Volume 81 fl (79-97); Monocytes # (Auto) 1.4 K/mm3 (0.0-0.8); Monocytes % (Auto) 10.5 % (0.0-7.3); Platelet Count 439 K/mm3 (140-440); Red Cell Distribution Width 17.8 % (13.2-15.2)
[2022-05-04 12:42] LABS: Alanine Aminotransferase 9 units/L (7-56); BUN/Creatinine Ratio 23; Blood Urea Nitrogen 18 mg/dL (7-17); Calcium 9.1 mg/dL (8.4-10.2); Hemolysis Index 2
--- NOTE | 2022-05-04 14:03 | Cat Scan Report ---
CTA CHEST WITH CONTRAST INDICATION / CLINICAL INFORMATION: Acute right-sided chest pain. TECHNIQUE: Axial CT images were obtained through the chest after injection of IV contrast. 3 plane MT P and/or 3D reconstructions were produced. All CT scans at this location are performed using CT dose reduction for ALARA by means of automated exposure control. COMPARISON: None available. FINDINGS: PULMONARY EMBOLUS: None. THORACIC AORTA: Advanced atherosclerotic calcification. Ascending thoracic aorta is mildly ectatic me asuring 3.4 cm in AP diameter. HEART: No significant abnormality. CORONARY ARTERY CALCIFICATION: Present -- Severe. MEDIASTINUM / MINDY: No significant abnormality. PLEURA: No pleural effusion. No pneumothorax. LUNGS: Advanced emphysematous changes are noted with bronchiectasis, large blebs/bulla and areas of a rchitectural distortion/scarring greatest in the anterior right lung apex. Within the posterior right lower lobe, there is a somewhat linear/cylindrical density which measures 1.8 x 0.7 cm on axial seri es 2 image 78. ADDITIONAL FINDINGS: None. UPPER ABDOMEN: The proximal portion of the proximal abdominal aortic stent graft is noted. On the inf erior most images there is high density along the periphery of the abdominal aorta just distal to the distal tip of the stent (axial series 2 images 118-121). This is incompletely included on this exam. This appearance could be due to fenestrated proximal graft that leads into a surgical endograft. SKELETAL STRUCTURES: No significant osseous abnormality. IMPRESSION: 1. No CT evidence for pulmonary embolism. 2. Advanced COPD changes. No acute pulmonary findings. 3. Additional findings as above. Signer Name: Crow Lawton MD Signed: 05/04/2022 1:58 PM Workstation Name: [id number]
[2022-05-04] MEDS ORDERED: oxyCODONE /ACETAMINOPHEN 5-325MG TAB PO PRN (14:07)
[2022-05-04] MEDS ORDERED: MORPHINE 4 MG/1 ML INJ IV PRN (14:07)
[2022-05-04] MEDS ORDERED: ALBUTEROL 2.5 MG/3 ML NEBU IH PRN (14:07)
[2022-05-04] MEDS ORDERED: ONDANSETRON 4 MG/2 ML INJ IV PRN (14:07)
[2022-05-04] MEDS ORDERED: NITROGLYCERIN 0.4 MG TAB SUBL SL PRN (14:07)
[2022-05-04] MEDS ORDERED: ACETAMINOPHEN 325 MG TAB PO PRN (14:07)
[2022-05-04] MEDS ORDERED: traMADol 50 MG TAB PO PRN (14:10)
[2022-05-04] MEDS ORDERED: ASPIRIN 81 MG TAB CHEW PO STA (14:14)
--- NOTE | 2022-05-04 15:37 | History and Physical Report ---
History of Present Illness Chief complaint: My chest was hurting History of present illness: 76 YO Female with HTN, GERD, DM, COPD presents ED for evaluation. Patient reports "my chest is hurting". Patient states that she had experienced a sudden onset of chest pain yesterday with recurrent episode over the past 24 hours. Patient was seen and evaluated by her surgeon and was instructed to seek further care at [facility]. Patient transported to [facility] Via private vehicle for further care and evaluation of the aforementioned symptoms. The patient was seen and evaluated in the emergency department. All lab and imaging studies reviewed. Patient found to have angina at rest as well as clinical s ymptoms consistent with diastolic CHF. Patient admitted to telemetry and initiated on CHF protocol as well as ACS protocol. Cardiology team consulted in ED. Patient denies fever, chills, productive cough, skin rash, recent contact, known exposure to COVID-19. No prior admission for review. All medication listed at time of admission has been reconciled. Advanced care planning conducted in ED. Past History Past Medical History: COPD, GERD, hypertension, other (See HPI) Past Surgical History: abd. aortic aneurysm repair Social history: , lives with family. denies: smoking, alcohol abuse, pr escription drug abuse Family history: hypertension Medications and Allergies Allergies Allergy/AdvReac Type Severity Reaction Status Date / Time codeine Allergy Shortness Verified 05/04/22 10:42 of Breath Home Medications Medication Instructions Recorded Confirmed Last Taken Type Anastrozole [Arimidex] 1 mg PO DAILY 04/11/22 04/11/22 04/10/22 History 1 tab Brimonidine Tartrate [Alphagan P 1 drop OU Q8HR 04/11/22 04/11/22 04/10/22 History 0.1%] 1 drop Calcium Carbonate/Vitamin D3 1 each PO DAILY 04/11/22 04/11/22 04/10/22 History [Calcium 600-Vit D3 200 Tablet] 1 tab Fluticasone/Umeclidin/Vilanter 1 puff INHALATION DAILY 04/11/22 04/11/22 04/10/22 History [Trelegy Ellipta 100-62.5-25(Nf)] 1 puff Gabapentin 300 mg PO DAILY 04/11/22 04/11/22 04/10/22 History 1 tab Latanoprost 0.005% 0.5 mg OU DAILY 04/11/22 04/11/22 04/10/22 History 1 drop Pantoprazole [Protonix TAB] 40 mg PO QDAY 04/11/22 04/11/22 04/10/22 History 1 tab Clopidogrel [Plavix] 75 mg PO QDAY #90 tablet 04/12/22 Unknown Rx traMADoL [Ultram 50 MG tab] 50 mg PO Q4H PRN #30 tablet 04/12/22 Unknown Rx Active Meds: Active Medications Acetaminophen (Acetaminophen 325 Mg Tab) 650 mg PO Q4H PRN PRN Reason: Pain MILD(1-3)/Fever >100.5/RICHTER Albuterol (Albuterol 2.5 Mg/3 Ml Nebu) 2.5 mg IH Q4HRT PRN PRN Reason: Shortness Of Breath Atorvastatin Calcium (Atorvastatin 40 Mg Tab) 40 mg PO QHS JESSICA Brimonidine Tartrate (Brimonidine 0.15% Ophth Soln) 1 drops OU Q8HR JESSICA Calcium/Vitamin D (Calcium Carbonate/Vitamin D3 500 Mg-200 Unit Tab) 1 each PO DAILY JESSICA Clopidogrel Bisulfate (Clopidogrel 75 Mg Tab) 75 mg PO QDAY JESSICA Famotidine (Famotidine 20 Mg Tab) 20 mg PO QDAY JESSICA Gabapentin (Gabapentin 300 Mg Cap) 300 mg PO DAILY JESSICA Latanoprost (Latanoprost 0.005% Ophth Soln 2.5 Ml) 1 drops OU DAILY JESSICA Miscellaneous Medication (Anastrozole [Arimidex]) 0 mg PO DAILY JESSICA Morphine Sulfate (Morphine 4 Mg/1 Ml Inj) 2 mg IV Q14H PRN PRN Reason: Pain , Severe (7-10) Nitroglycerin (Nitroglycerin 0.4 Mg Tab Subl) 0.4 mg SL .Q5MIN PRN PRN Reason: Chest Pain Ondansetron HCl (Ondansetron 4 Mg/2 Ml Inj) 4 mg IV Q8H PRN PRN Reason: Nausea And Vomiting Oxycodone/Acetaminophen (Oxycodone /Acetaminophen 5-325mg Tab) 1 tab PO Q6H PRN PRN Reason: Pain, Moderate (4-6) Sodium Chloride (Sodium Chloride 0.9% 10 Ml Flush Syringe) 10 ml IV BID JESSICA Sodium Chloride (Sodium Chloride 0.9% 10 Ml Flush Syringe) 10 ml IV PRN PRN PRN Reason: LINE FLUSH Tramadol HCl (Tramadol 50 Mg Tab) 50 mg PO Q4H PRN PRN Reason: Pain, Moderate (4-6) Review of Systems Constitutional: no weight loss, no weight gain, no fever, no chills Ears, nose, mouth and throat: no ear pain, no ear discharge, no tinnitis, no nose pain, no nasal congestion Breasts: no change in shape, no swelling, no mass Cardiovascular: chest pain, no orthopnea, no palpitations, no rapid/irregular heart beat, no edema, no syncope, no lightheadedness, no shortness of breath, no dyspnea on exertion, no paroxysmal nocturnal dyspnea, no claudication, no phlebitis, no high blood pressure, no leg edema, no decreased exercise tolerance Respiratory: no cough, no cough with sputum, no excessive sputum Gastrointestinal: no abdominal pain, no nausea, no vomiting, no diarrhea Genitourinary Female: no pelvic pain, no flank pain, no dysuria, no urinary frequency, no urgency Menstruation: ammenorrhea Rectal: no pain, no incontinence, no bleeding Musculoskeletal: no neck stiffness, no arm numbness/tingling, no leg numbness/tingling Integumentary: no rash, no pruritis, no redness, no wounds Neurological: no head injury, no transient paralysis, no parathesias, no tingling, no seizures, no syncope Psychiatric: no anxiety, no change in sleep habits, no sleep disturbances, no insomnia, no hypersomnia, no change in appetite Endocrine: no polyphagia, no excessive thirst, no polydipsia, no polyuria, no nocturia Hematologic/Lymphatic: no easy bruising, no easy bleeding Allergic/Immunologic: no allergic rhinitis, no wheezing Exam - Constitutional Vitals: Temp Pulse Resp BP Pulse Ox 98.0 F 87 17 106/67 100 05/04/22 14:02 05/04/22 14:02 05/04/22 14:02 05/04/22 14:02 05/04/22 14:02 General appearance: Present: mild distress, cachectic - EENT Eyes: Present: PERRL ENT: hearing intact, clear oral mucosa - Neck Neck: Present: supple, normal ROM - Respiratory Respiratory effort: normal Respiratory: bilateral: CTA - Cardiovascular Heart Sounds: Present: S1 & S2. Absent: rub, click - Extremities Extremities: pulses symmetrical, No edema Peripheral Pulses: within normal limits - Abdominal General gastrointestinal: Present: soft, non-tender, non-distended, normal bowel sounds Female genitourinary: Present: normal - Integumentary Integumentary: Present: clear, warm, dry - Musculoskeletal Musculoskeletal: gait normal, strength equal bilaterally - Psychiatric Psychiatric: appropriate mood/affect, intact judgment & insight - Neurologic Neurologic: CNII-XII intact, moves all extremities HEART Score - HEART Score EKG: Non-specific Age: > 65 Risk factors: > 3 risk factors or hx of atherosclerotic disease Troponin: Troponin T < 0.010 ng/mL (0.00-0.029) 05/04/22 11:25 Troponin: < normal limit - Critical Actions Critical Actions: 4-6 pts:12-16.6% risk of adverse cardiac event. Should be admitted Results - Labs CBC & Chem 7: 05/04/22 11:25 05/04/22 11:25 Labs: Abnormal lab results 05/04/22 05/04/22 Range/Units 11:25 11:25 WBC 13.6 H (4.5-11.0) K/mm3 RBC 3.40 L (3.65-5.03) M/mm3 Hgb 8.5 L (10.1-14.3) gm/dl Hct 27.7 L (30.3-42.9) % MCH 25 L (28-32) pg RDW 17.8 H (13.2-15.2) % Lymph % (Auto) 5.1 L (13.4-35.0) % [place] % (Auto) 10.5 H (0.0-7.3) % Lymph # (Auto) 0.7 L (1.2-5.4) K/mm3 [place] # (Auto) 1.4 H (0.0-0.8) K/mm3 Seg Neutrophils % 84.1 H (40.0-70.0) % Seg Neutrophils # 11.5 H (1.8-7.7) K/mm3 Sodium 136 L (137-145) mmol/L Chloride 96.2 L (98-107) mmol/L BUN 18 H (7-17) mg/dL Glucose 105 H (65-100) mg/dL Assessment and Plan - Patient Problems (1) Angina at rest Current Visit: Yes Status: Acute Plan to address problem: ACS protocol: Serial cardiac enzymes, EKG, telemetry monitoring, morphine, submental oxygen, nitro, aspirin, cardiology team consulted. Echocardiogram ordered and pending at time of admission. Further care and evaluation as per cardiology team. (2) Diastolic CHF Current Visit: Yes Status: Suspected Plan to address problem: Strict I's/O, monitor urine output every shift, daily weight, afterload reduction with blood pressure control, echocardiogram ordered and pending at time of admission. (3) Malnutrition Current Visit: Yes Status: Acute Qualifiers: Protein-calorie malnutrition severity: moderate Plan to address problem: Increase protein intake, dietary supplementation. (4) Hypertension Current Visit: Yes Status: Acute Qualifiers: Hypertension type: primary hypertension Qualified Code(s): I10 - Essential (primary) hypertension Plan to address problem: Monitor blood pressure every shift, continue medical management. (5) Diabetes Current Visit: Yes Status: Acute Plan to address problem: Consistent carbohydrate diet, Accu-Chek, insulin protocol, hypoglycemia pr otocol. (6) DVT prophylaxis Current Visit: Yes Status: Acute Plan to address problem: SCD to bilateral lower extremities while in bed (7) Advance care planning Current Visit: Yes Status: Acute Plan to address problem: Disease education data, care plan discussed, diagnoses discussed, prognosis discussed, patient is full code. Patient knowledges understanding and agreement with care plan, +30 minutes. (8) Preventative health care Current Visit: Yes Status: Acute Plan to address problem: Patient counseled regarding home safety precautions, risk factor reduction, outpatient follow-up with primary care physician for all age and risk factor appropriate screening tests. +30 minutes.
[2022-05-04 17:22] LABS: Mucus,Urine FEW /HPF
[2022-05-04 17:32] LABS: Color,Urine Straw (Yellow)
[2022-05-04 20:23] LABS: INR 1.18 (0.87-1.13)
[2022-05-04 20:24] LABS: Partial Thromboplastin Time 31.9 Sec. (24.2-36.6)
[2022-05-04] MEDS ORDERED: NON-FORMULARY EACH (Brimonidine Tartrate [Alphagan P 0.1%] 10 ML Drops) OU SCH (22:00)
[2022-05-04] MEDS ORDERED: FAMOTIDINE 20 MG TAB PO SCH (22:00)
[2022-05-04] MEDS ORDERED: BRIMONIDINE 0.15% OPHTH SOLN OU SCH (22:00)
[2022-05-05 05:03] LABS: BUN/Creatinine Ratio 15; Blood Urea Nitrogen 12 mg/dL (7-17); Calcium 8.7 mg/dL (8.4-10.2); Hemolysis Index 1
[2022-05-05] MEDS ORDERED: FAMOTIDINE 20 MG TAB PO SCH (10:00)
[2022-05-05] MEDS ORDERED: CALCIUM CARBONATE/VITAMIN D3 500 MG-200 UNIT TAB PO SCH (10:00)
[2022-05-05] MEDS ORDERED: CLOPIDOGREL 75 MG TAB PO SCH (10:00)
[2022-05-05] MEDS ORDERED: [UNRECOGNIZED DRUG - OTHER] PO SCH (10:00)
[2022-05-05] MEDS ORDERED: CALCIUM CARBONATE PO SCH (10:00)
[2022-05-05] MEDS ORDERED: LATANOPROST 0.005% OPHTH SOLN 2.5 ML OU SCH (10:00)
[2022-05-05] MEDS ORDERED: NON-FORMULARY EACH (Anastrozole [Arimidex] 1 MG Tablet) PO SCH (10:00)
[2022-05-05] MEDS ORDERED: VITAMIN D3 PO SCH (10:00)
[2022-05-05] MEDS ORDERED: GABAPENTIN 300 MG CAP PO SCH (10:00)
--- NOTE | 2022-05-05 10:40 | Consultation ---
History of Present Illness Consult date: 05/05/22 Consult reason: chest pain History of present illness: The patient is a 76-year-old woman with peripheral vascular disease, who unde rwent endovascular AAA repair just 3 weeks ago. Yesterday, she was on a routine follow-up visit with her vascular surgeon, during which she mentioned that she had been experiencing some chest pain from the day before, and this prompted her referral to the emergency room for further evaluation. She was seen in the emergency room, admitted and cardiac consultation obtained. The patient reports to me that her pain is located right upper chest, adjacent to the shoulder, was positional, and somewhat pleuritic. She did not think it was related to her heart because of the position and the characteristics of the pain, and had just reported to the surgeons office on a routine scheduled visit. She currently looks and feels fine, has no chest pain, no shortness of breath. Patient has a life skills consultant Dr. Chen, whom she sees on a regular basis. She states that earlier this year she had a negative stress test and echocardiogram. Work-up in the hospital so far, EKG is normal sinus rhythm, normal ECG with early repolarization ST changes. Chest x-ray showed normal- sized cardiac silhouette and clear lungs. Serial troponin levels x2 were normal. Past History Past Medical History: COPD, GERD, hypertension, PVD, other (See HPI) Past Surgical History: abd. aortic aneurysm repair Social history: , lives with family. denies: smoking, alcohol abuse, prescription drug abuse Family history: hypertension Medications and Allergies Allergies Allergy/AdvReac Type Severity Reaction Status Date / Time codeine Allergy Shortness Verified 05/04/22 10:42 of Breath Home Medications Medication Instructions Recorded Confirmed Last Taken Type Anastrozole [Arimidex] 1 mg PO DAILY 04/11/22 04/11/22 04/10/22 History 1 tab Brimonidine Tartrate [Alphagan P 1 drop OU Q8HR 04/11/22 04/11/22 04/10/22 History 0.1%] 1 drop Calcium Carbonate/Vitamin D3 1 each PO DAILY 04/11/22 04/11/22 04/10/22 History [Calcium 600-Vit D3 200 Tablet] 1 tab Fluticasone/Umeclidin/Vilanter 1 puff INHALATION DAILY 04/11/22 04/11/22 04/10/22 History [Trelegy Ellipta 100-62.5-25(Nf)] 1 puff Gabapentin 300 mg PO DAILY 04/11/22 04/11/22 04/10/22 History 1 tab Latanoprost 0.005% 0.5 mg OU DAILY 04/11/22 04/11/22 04/10/22 History 1 drop Pantoprazole [Protonix TAB] 40 mg PO QDAY 04/11/22 04/11/22 04/10/22 History 1 tab Clopidogrel [Plavix] 75 mg PO QDAY #90 tablet 04/12/22 Unknown Rx traMADoL [Ultram 50 MG tab] 50 mg PO Q4H PRN #30 tablet 04/12/22 Unknown Rx Active Meds: Active Medications Acetaminophen (Acetaminophen 325 Mg Tab) 650 mg PO Q4H PRN PRN Reason: Pain MILD(1-3)/Fever >100.5/RICHTER Albuterol (Albuterol 2.5 Mg/3 Ml Nebu) 2.5 mg IH Q4HRT PRN PRN Reason: Shortness Of Breath Atorvastatin Calcium (Atorvastatin 40 Mg Tab) 40 mg PO QHS [facility] Last Admin: 05/04/22 21:22 Dose: 40 mg Brimonidine Tartrate (Brimonidine 0.15% Ophth Soln) 1 drops OU Q8HR [facility] Calcium/Vitamin D (Calcium Carbonate/Vitamin D3 500 Mg-200 Unit Tab) 1 each PO DAILY [facility] Last Admin: 05/05/22 10:01 Dose: 1 each Clopidogrel Bisulfate (Clopidogrel 75 Mg Tab) 75 mg PO QDAY [facility] Last Admin: 05/05/22 10:01 Dose: 75 mg Famotidine (Famotidine 20 Mg Tab) 20 mg PO QDAY [facility] Last Admin: 05/05/22 10:02 Dose: 20 mg Gabapentin (Gabapentin 300 Mg Cap) 300 mg PO DAILY [facility] Last Admin: 05/05/22 10:02 Dose: 300 mg Latanoprost (Latanoprost 0.005% Ophth Soln 2.5 Ml) 1 drops OU DAILY [facility] Last Admin: 05/05/22 10:03 Dose: 1 drops Miscellaneous Medication (Anastrozole [Arimidex]) 0 mg PO DAILY [facility] Morphine Sulfate (Morphine 4 Mg/1 Ml Inj) 2 mg IV Q14H PRN PRN Reason: Pain , Severe (7-10) Nitroglycerin (Nitroglycerin 0.4 Mg Tab Subl) 0.4 mg SL .Q5MIN PRN PRN Reason: Chest Pain Ondansetron HCl (Ondansetron 4 Mg/2 Ml Inj) 4 mg IV Q8H PRN PRN Reason: Nausea And Vomiting Oxycodone/Acetaminophen (Oxycodone /Acetaminophen 5-325mg Tab) 1 tab PO Q6H PRN PRN Reason: Pain, Moderate (4-6) Sodium Chloride (Sodium Chloride 0.9% 10 Ml Flush Syringe) 10 ml IV BID JESSICA Last Admin: 05/05/22 10:03 Dose: 10 ml Sodium Chloride (Sodium Chloride 0.9% 10 Ml Flush Syringe) 10 ml IV PRN PRN PRN Reason: LINE FLUSH Tramadol HCl (Tramadol 50 Mg Tab) 50 mg PO Q4H PRN PRN Reason: Pain, Moderate (4-6) Review of Systems Cardiovascular: chest pain, no orthopnea, no palpitations, no rapid/irregular heart beat, no edema, no syncope, no lightheadedness, no shortness of breath Physical Examination Vital Signs Temp Pulse Resp BP Pulse Ox 98.3 F 102 H 20 98/50 98 05/04/22 10:38 05/04/22 10:38 05/04/22 10:38 05/04/22 10:38 05/04/22 10:38 General appearance: no acute distress HEENT: Positive: PERRL Neck: Positive: neck supple Cardiac: Positive: Reg Rate and Rhythm Lungs: Positive: clear to auscultation Neuro: Positive: Grossly Intact Abdomen: Positive: Soft Female genitourinary: deferred Skin: Positive: Clear Extremities: Absent: edema Results 05/04/22 11:25 05/05/22 04:04 Cardiac Enzymes 05/04/22 Range/Units 11:25 AST 14 (5-40) units/L Coagulation 05/04/22 Range/Units 13:45 PT 16.4 H (12.2-14.9) Sec. INR 1.18 H (0.87-1.13) APTT 31.9 (24.2-36.6) Sec. CBC 05/04/22 Range/Units 11:25 WBC 13.6 H (4.5-11.0) K/mm3 RBC 3.40 L (3.65-5.03) M/mm3 Hgb 8.5 L (10.1-14.3) gm/dl Hct 27.7 L (30.3-42.9) % Plt Count 439 (140-440) K/mm3 Lymph # (Auto) 0.7 L (1.2-5.4) K/mm3 [place] # (Auto) 1.4 H (0.0-0.8) K/mm3 Eos # (Auto) 0.0 (0.0-0.4) K/mm3 Baso # (Auto) 0.0 (0.0-0.1) K/mm3 Comprehensive Metabolic Panel 05/04/22 05/05/22 Range/Units 11:25 04:04 Sodium 136 L 142 (137-145) mmol/L Potassium 4.2 4.5 (3.6-5.0) mmol/L Chloride 96.2 L 104.2 (98-107) mmol/L Carbon Dioxide 24 27 (22-30) mmol/L BUN 18 H 12 (7-17) mg/dL Creatinine 0.8 0.8 (0.6-1.2) mg/dL Glucose 105 H 94 (65-100) mg/dL Calcium 9.1 8.7 (8.4-10.2) mg/dL AST 14 (5-40) units/L ALT 9 (7-56) units/L Alkaline Phosphatase 69 (35-129) units/L Total Protein 6.4 (6.3-8.2) g/dL Albumin 4.0 (3.9-5) g/dL EKG interpretations - Telemetry EKG Rhythm: Sinus Rhythm (Normal ECG) Assessment and Plan - Patient Problems (1) Atypical chest pain Current Visit: Yes Status: Acute Plan to address problem: Patient presents with atypical chest pain, characteristics and location suggest musculoskeletal pain. There are no anginal characteristics. Serial ECGs are normal, serial troponin levels are normal. We will request and review outpatient cardiac records, otherwise no further cardiac work-up is indicated.
--- NOTE | 2022-05-05 12:41 | Discharge Summary ---
Providers - Providers Date of Admission: 05/04/22 14:08 Date of discharge: 05/05/22 Attending physician: CHANA DIAZ MD 05/04/22 Consult to Cardiac Rehabilitation [CONS] Routine Reason For Exam: Phase 1 05/04/22 11:38 Consult to Physician [CONS] Stat Comment: Consulting Provider: JOHANNY YOUNGBLOOD Physician Instructions: Reason For Exam: acute chest pain Primary care physician: SUPERVISOR [employer] Hospitalization Reason for admission: ACS rule out Condition: Good Hospital course: The patient is a 76-year-old female with history of COPD and chronic respiratory failure who presented with right-sided chest pain. In recent weeks she had aortic aneurysm repair and was following up with her vascular surgeon who told her to go to the ED. D-dimer was elevated at 1275 and troponin was negative x2. CT angiogram of the chest was negative for PE, showed changes of advanced COPD and did show a right lower lobe density measuring 1.8 x 0.7 cm. Cardiology evaluated the patient and determined that the chest pain was noncardiac in nature. The patient's chest pain resolved spontaneously she was discharged home with instructions to follow- up with her military pay clerk. Disposition: HOME / SELF CARE / HOMELESS Final Discharge Diagnosis (Prints w/discharge instructions): ACS ruled out. Diastolic heart failure ruled out. Atypical chest pain. Right lower lobe nodule. Chronic hypoxic respiratory failure. COPD. Hypertension. Malnutrit ion. Type 2 diabetes Time spent for discharge: 30 minutes Core Measure Documentation - Palliative Care Palliative Care/ Comfort Measures: Not Applicable - Core Measures Any of the following diagnoses?: none Exam - Physical Exam Narrative exam: GENERAL: Thin, malnourished woman. In no acute distress. HEENT: NC in place at 3LPM NECK: Supple. CHEST/LUNGS: CTAB on supplemental O2. HEART/CARDIOVASCULAR: RRR. No murmur, rubs or gallops appreciated. ABDOMEN: +BS. NT/ND. SKIN: No rashes noted. NEURO: No focal motor deficit. Follows all commands. MUSCULOSKELETAL: No joint effusion EXTREMITIES: No cyanosis, clubbing or edema. PSYCH: Cooperative. - Constitutional Vitals: Temp Pulse Resp BP Pulse Ox 97.7 F 86 18 112/61 96 05/05/22 08:56 05/05/22 10:00 05/05/22 11:40 05/05/22 08:56 05/05/22 11:40 Plan Care Plan Goals: Please follow up with your primary care provider and [employer] Implementation Specialist. We unfortunately did not find anything as the cause of your chest pain. The CT scan of your chest did not show a blood clot in your lungs. Your aortic graft is in the correct position as well. Continue to take all medications as prescribed. Follow up with: PRIMARY CARE, [Primary Care Provider] - 3-5 Days Prescriptions: AtorvaSTATin [Lipitor] 40 mg PO QHS 30 Days #30 tablet
[2022-05-05 13:12] VITALS: BP 111/53
--- NOTE | 2022-05-05 13:33 | Electrocardiograph Report ---
[facility] Test Date: 2022-05-04 Test Time: 10:49:54 Pat Name: GARTH NUNEZ Department: Room: A475 1 Gender: F Senior International Tax Manager: NURSE : 1945 Requested By: PATTI DAY Order Number: [id number] Reading MD: Yeni Schroeder Measurements Intervals [place] Rate: 94 P: 85 WV: 141 QRS: 70 QRSD: 73 T: 65 QT: 340 QTc: 426 Interpretive Statements Sinus rhythm Biatrial enlargement Early repolarization ST change Compared to ECG 04/11/2022 07:36:06 Sinus rate has increased Electronically Signed On 05-05-2022 13:33:21 EDT by Yeni Schroeder
--- NOTE | 2022-05-05 13:36 | Electrocardiograph Report ---
[facility] Test Date: 2022-05-04 Test Time: 14:59:57 Pat Name: GARTH NUNEZ Department: Room: A475 1 Gender: F Capacity Management Specialist: HILLARY : 1945 Requested By: BERENICE ROMERO Order Number: [id number] Reading MD: Yeni Schroeder Measurements Intervals [place] Rate: 85 P: 85 VT: 152 QRS: 85 QRSD: 81 T: 85 QT: 373 QTc: 443 Interpretive Statements Sinus rhythm Early repolarization ST changes Compared to ECG 05/04/2022 10:49:54 No significant change Electronically Signed On 05-05-2022 13:35:45 EDT by Yeni Schroeder
--- NOTE | 2022-05-05 13:43 | Electrocardiograph Report ---
[facility] Test Date: 2022-05-05 Test Time: 08:02:42 Pat Name: GARTH NUNEZ Department: Room: A475 1 Gender: F Human Resources Office Assistant: KAREEN : 1945 Requested By: PATTI DAY Order Number: [id number] Reading MD: Yeni Schroeder Measurements Intervals [place] Rate: 89 P: 81 ID: [id number] QRS: 70 QRSD: 81 T: 75 QT: 351 QTc: 428 Interpretive Statements Sinus rhythm Ventricular premature complex Early repolarization ST changes Compared to ECG 05/04/2022 14:59:57 Ventricular premature complex(es) now present Electronically Signed On 05-05-2022 13:42:52 EDT by Yeni Schroeder
== END 2022-05-05 14:10 | disposition home or self-care (01) | DRG 313 ==
LOC: ED 10:35 → 4A 14:08
PROVIDERS: ADMIT Internal Medicine; ATTEND Student in an Organized Health Care Education/Training Program
DX: R07.89 Other chest pain (principal); E44.0 Moderate protein-calorie malnutrition; Z68.1 Body mass index [BMI] 19.9 or less, adult; J96.10 Chronic respiratory failure, unspecified whether with hypoxia or hypercapnia; K21.9 Gastro-esophageal reflux disease without esophagitis; J43.9 Emphysema, unspecified; I10 Essential (primary) hypertension; D64.9 Anemia, unspecified; E11.51 Type 2 diabetes mellitus with diabetic peripheral angiopathy without gangrene; Z82.49 Family history of ischemic heart disease and other diseases of the circulatory system; Z87.891 Personal history of nicotine dependence; Z88.6 Allergy status to analgesic agent
CPT/HCPCS: 36415; 71045; 71275; 80048; 80053; 81001; 82270; 84484; 85025; 85379; 85610; 85730; 93005; 94760; G0378; J7120; Q9967